=== PATIENT | male | born 1975 | race Caucasian/White ===

== ENCOUNTER 2017-04-08 00:35 | Emergency (ER) | payer BC ==
[2017-04-08] MEDS ORDERED: Benoxinate/Fluorescein 0.4-0.25% Ophth Soln 5 ML Bottle EYERT ONE (01:05)
--- NOTE | 2017-04-08 01:14 | EDM.PDOC ---
ED HPI GENERAL MEDICAL PROBLEM - General Chief Complaint: Eye Problems Stated Complaint: SOMTHING IN EYE Time Seen by Provider: 04/08/17 01:04 Source of Information: Reports: Patient History Limitations: Reports: No Limitations - History of Present Illness INITIAL COMMENTS - FREE TEXT/NARRATIVE: The patient was pitching hay in the wind last evening at 8pm and he got some hay in his right eye. He wears glasses but no contacts. He has no blurred vision or double vision. Onset: Sudden Duration: Hour(s): (8pm last night) Location: Reports: Face Quality: Reports: Sharp Severity: Mild Improves with: Reports: None Worsens with: Reports: None Associated Symptoms: Reports: No Other Symptoms - Related Data Allergies Allergy/AdvReac Type Severity Reaction Status Date / Time No Known Allergies Allergy Verified 04/08/17 01:01 Home Meds: Home Meds . [Unable to Verify Home Med List] 04/08/17 [History] Past Medical History HEENT History: Reports: Impaired Vision Other HEENT History: Wears glasses Cardiovascular History: Reports: Afib Gastrointestinal History: Reports: Other (See Below) Other Gastrointestinal History: Colitis - Past Surgical History HEENT Surgical History: Reports: Tonsillectomy Social & Family History - Tobacco Use Smoking Status *Q: Never Smoker - Recreational Drug Use Recreational Drug Use: No ED ROS GENERAL - Review of Systems Review Of Systems: See Below Constitutional: Reports: No Symptoms HEENT: Reports: Eye Pain Respiratory: Reports: No Symptoms Cardiovascular: Reports: No Symptoms Endocrine: Reports: No Symptoms GI/Abdominal: Reports: No Symptoms : Reports: No Symptoms ED EXAM GENERAL W FULL EYE - Physical Exam Exam: See Below Exam Limited By: No Limitations General Appearance: Alert, No Apparent Distress Eye Exam: Bilateral Eye: EOMI, PERRL Eyelids: Right: Other (No FB noted), Bilateral: Normal Appearance Conjunctiva & Sclera: Bilateral: Normal Appearance Cornea Exam: Right: Corneal Abrasion Extraocular Movements: Bilateral: Intact Course - Vital Signs Last Recorded V/S: Last Vital Signs Temp 97.0 F 04/08/17 01:01 Pulse 68 04/08/17 01:01 Resp 16 04/08/17 01:01 BP 134/87 04/08/17 01:01 Pulse Ox 98 04/08/17 01:01 - Orders/Labs/Meds Meds: Medications Discontinued Medications Generic Name Dose Route Start Last Admin Trade Name Brian PRN Reason Stop Dose Admin Fluorescein Sodium/Benoxinate HCl 1 ml 04/08/17 01:05 Fluress Ophth Soln EYERT 04/08/17 01:06 ONETIME ONE Departure - Departure Time of Disposition: 01:15 Disposition: Home, Self-Care 01 Condition: Good Clinical Impression: Corneal abrasion Qualifiers: Encounter type: initial encounter Laterality: right Qualified Code(s): S05.01XA - Injury of conjunctiva and corneal abrasion without foreign body, right eye, initial encounter - Discharge Information Referrals: PCP,None [Primary Care Provider] - Additional Instructions: Use the cipro drops 1 drop every 4 hours while awake for 1 week. Please return if you are worse or follow up with your eye doctor.
== END 2017-04-08 01:27 | disposition home or self-care (01) ==
LOC: JD.ED 00:35
DX: S05.01XA Injury of conjunctiva and corneal abrasion without foreign body, right eye, initial encounter (principal); X58.XXXA Exposure to other specified factors, initial encounter
CPT/HCPCS: 99283